=== PATIENT | female | born 1985 | race Caucasian/White ===

== ENCOUNTER 2017-08-04 12:05 | Emergency (ER) | payer MEDICAID ==
[~2017-08-04 12:05] MED LIST: CEPH500C3 PO; CHLO.12%30 SSP; CLIN1CAP5 PO; IBUP800T23 PO; MACR100C PO; PRENCAP10 PO
[2017-08-04 12:06] VITALS: BP 131/74; PULSE 94; RESP 18; TEMP 98.4; O2SAT 100
[2017-08-04] MEDS ORDERED: SODIUM CHLOR 0.9% 1000 ML INJ 1,000 ML IV SCH (13:40)
[2017-08-04] MEDS ORDERED: SODIUM CHLORIDE 0.9% FLUSH 10 ML FLUSH IVF PRN (13:45)
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
[2017-08-04 15:00] VITALS: BP 126/84; PULSE 90; RESP 14; O2SAT 99
[2017-08-04 15:19] LABS: AUTOMATED NEUTROPHIL # 7.6 TH/MM3 (1.8-7.7); BASOPHIL % 0.3 % (0.0-2.0); EOSINOPHIL # 0.1 TH/MM3 (0-0.4); EOSINOPHIL % 0.6 % (0.0-4.0); HEMATOCRIT 42.5 % (35.0-46.0); HEMOGLOBIN 14.4 GM/DL (11.6-15.3); LYMPH % 23.1 % (9.0-44.0); LYMPHOCYTE # 2.5 TH/MM3 (1.0-4.8); MEAN CELL VOLUME 83.3 FL (80.0-100.0); MEAN CORPUSCULAR HEMOGLOBIN 28.2 PG (27.0-34.0); MEAN CORPUSCULAR HGB CONC 33.9 % (32.0-36.0); MEAN PLATELET VOLUME 9.1 FL (7.0-11.0); MONO % 5.2 % (0.0-8.0); MONOCYTE # 0.6 TH/MM3 (0-0.9); NEUT % 70.8 % (16.0-70.0); PLATELET COUNT 289 TH/MM3 (150-450); RED CELL DISTRIBUTION WIDTH 13.5 % (11.6-17.2); WHITE BLOOD COUNT 10.7 TH/MM3 (4.0-11.0)
[2017-08-04 15:38] LABS: PROTHROMBIN TIME - PATIENT 10.4 SEC (9.8-11.6)
[2017-08-04 15:59] LABS: BILIRUBIN, URINE NEG (NEG); BLOOD, URINE NEG (NEG); GLUCOSE,URINE NEG (NEG); KETONE, URINE 80 mg/dL (NEG); NITRITE,URINE NEG (NEG); SQUAMOUS EPITHELIAL CELL URINE 5 /hpf (0-5); URINE COLOR LIGHT-YELLOW (YELLW/STRAW); URINE LEUKOCYTE ESTERASE NEG (NEG)
[2017-08-04 16:04] LABS: ALKALINE PHOSPHATASE 60 U/L (45-117); ALT (GPT) 44 U/L (10-53); BLOOD UREA NITROGEN 6 MG/DL (7-18); TOTAL PROTEIN 8.3 GM/DL (6.4-8.2)
[2017-08-04 16:06] LABS: ALBUMIN 4.4 GM/DL (3.4-5.0); AST (GOT) 39 U/L (15-37); BICARBONATE 24.7 MEQ/L (21.0-32.0); CALCIUM 9.5 MG/DL (8.5-10.1); CHLORIDE 107 MEQ/L (98-107); CREATININE 0.77 MG/DL (0.50-1.00); GLOMERULAR FILTRATION RATE 88 ML/MIN (>89); GLUCOSE,RANDOM 82 MG/DL (74-106); SODIUM (NA) 140 MEQ/L (136-145)
[2017-08-04 16:30] VITALS: BP 120/62
== END 2017-08-04 16:31 | disposition home or self-care (01) ==
LOC: NEPC 12:05
DX: K62.5 Hemorrhage of anus and rectum (principal); F17.200 Nicotine dependence, unspecified, uncomplicated
CPT/HCPCS: 80053; 81001; 83690; 84703; 85025; 85610; 85730; 96360; 99284; J7030